=== PATIENT | female | born 1945 | race Caucasian/White ===

== ENCOUNTER 2016-05-30 04:03 | Inpatient (IN) | payer MEDICARE, OTHER ==
--- NOTE | 2016-05-30 04:21 | ED Physician Documentation ---
General Adult - HISTORIAN Historian: patient - HPI Stated Complaint: sob Chief Complaint: General Adult Onset: hours Timing: still present Severity: moderate Further Comments: yes (Pt is a 71 yo female with hx COPD, recently dx'd with bronchitis 3 days ago, and started on prednisone 40 mg. Pt has become worse. SpO2 on arrival was 83% but improved to 88% on resting. SpO2 improved to 99% on 4L NC O2 and was then reduced to 2L NC O2. Pt uses O2 at home. Pt did not have chest pain, but has had cough productive of yellow sputum. Pt has not been on abx for this episode.) - ROS CONST: other (malaise) EYES/ENT: other (throat irritation) CVS/RESP: shortness of breath, cough GI/: none MS/SKIN/LYMPH: none - PAST HX Past History: COPD, other (HLD, hypothyroidism, hx bronchitis, depression.) Surgeries/Procedures: cholecystectomy Allergies/Adverse Reactions: Allergies Allergy/AdvReac Type Severity Reaction Status Date / Time silver Allergy Intermediate Rash Verified 05/30/16 04:42 shellfish derived AdvReac Intermediate Vomiting Verified 05/30/16 04:42 - SOCIAL HX Smoking History: cigarettes - FAMILY HX Family History: No - REVIEWED ASSESSMENTS Nursing Assessment Reviewed: Yes Vitals Reviewed: Yes Progress - Progress Progress: Duoneb HFN Solu-medrol 80 mg IV Lasix 20 mg IV Azithromycin 500 mg in ER. Admit to Dr. Luna. - EKG/XRAY/CT EKG: NSR (HR=88; normal ID interval; normal axis.) XRAY: chest (No active disease.) General Adult Physical Exam - PHYSICAL EXAM GENERAL APPEARANCE: moderate distress EENT: pharynx normal, TM's nml, other (sinus fullness) NECK: normal inspection, supple RESPIRATORY: no resp distress, chest non-tender, breath sounds normal CVS: reg rate & rhythm, heart sounds normal BACK: normal inspection, no CVA tenderness SKIN: warm/dry, normal color EXTREMITIES: non-tender, normal range of motion, no edema NEURO: oriented X3, motor nml, sensation nml Discharge Clincal Impression: COPD exacerbation, Bronchitis Referrals: Belia Luna MD [Primary Care Provider] - Condition: Fair Disposition: 09 ADMITTED INPATIENT Decision to Admit: [id number] Decision Time: 06:15
[2016-05-30] MEDS ORDERED: IPRATROPIUM/ALBUTEROL SULFATE 3 ML AMPUL.NEB NEB ONE (04:22)
[2016-05-30 04:47] LABS: BASOPHILS % 0.3 (0.0-1.5); EOSINOPHILS % 1.4 % (0.0-6.8); LYMPHOCYTES # 1.8 # k/uL (0.6-4.0); MEAN CORPUSCULAR HEMOGLOBIN 31.1 pg (28.0-34.0); MONOCYTES # 0.5 # k/uL (0.0-0.9); MONOCYTES % 4.1 % (0.0-11.0); NEUTROPHILS # 8.8 # k/uL (1.4-7.7)
[2016-05-30 05:00] LABS: eGFR (African) > 60; eGFR (Non-African) > 60
[2016-05-30] MEDS ORDERED: methylPREDNISolone SOD SUCC 40 MG/ML VIAL IM ONE (05:19)
--- NOTE | 2016-05-30 05:52 | Diagnostic Imaging Report ---
[facility] [address] [facility].[address] [address] ~ ~ ~ ~ Report Submission Date: May 30, 2016 5:12:50 AM GREEN CHAIN WORKER Patient ~ Study Name: DAV PEREZ ~ Date: May 30, 2016 4:55:13 AM GREEN CHAIN WORKER ~ Modality Type: CR Gender: F ~ Description: CHEST : 41 ~ Institution: [facility] Physician: BIANCA NAVARRETE ~ ~ ~ ~ Chest - one-view Clinical history: ~Chest congestion with cough for 4-5 days. ~Shortness of breath. Findings: ~Examination of the chest in single portable AP view 05/30/2016 0455 hours with comparison to examination of 02/03/2016 demonstrates the lungs to be clear. ~Cardiac silhouette is prominent and the aorta is atherosclerotic. ~Bony thorax is intact. Impression: 1. ~No significant change. 2. ~No active disease. ~ Electronically signed on May 30, 2016 5:12:50 AM GREEN CHAIN WORKER by: Zion ESPINOZA
[2016-05-30] MEDS ORDERED: FUROSEMIDE 20 MG/2 ML VIAL IVP ONE (06:03)
[2016-05-30] MEDS ORDERED: AZITHROMYCIN 250 MG TABLET PO ONE (06:14)
[2016-05-30] MEDS: AZITHROMYCIN 500 MG in 0.9 % SODIUM CHLORIDE 250 ML IV SCH (06:18)
[2016-05-30] MEDS ORDERED: guaiFENesin/CODEINE PHOS 30ML BOTTLE PO ONE (06:54)
[2016-05-30] MEDS ORDERED: guaiFENesin/CODEINE PHOS 30ML BOTTLE PO PRN (07:18)
[2016-05-30 08:04] VITALS: BMI 29.2
--- NOTE | 2016-05-30 09:12 | History and Physical Report ---
History of Present Illnes - History of Present Illness Reason for Visit: Shortness of breath History of Present Illness: Patient who is a smoker with COPD presented to ER with worsening SOB. She was seen 05-27-16 and started on a prednisone taper. She has become progressively more dyspneic - found to have RA SAT of 84% when she came in. Improved to 88% with rest. O2 applied at 4 L and SAT improved to 95%. Has had a cough of yellow sputum. CXR and WBC normal in ER. Influenza negative. BNP mild elevated but no h/o CHF. Denies long periods of sitting, edema, CP, orthopnea. - Past Medical History Cardiac: HTN, Hyperlipidemia Pulmonary: COPD Psych: Depression Rheumatologic: Rheumatoid arthritis Endocrine: Other (Nathalie 1993) - Past Surgical History Past Surgical History: Cholecystectomy (2012) - Past Family History Father Family History: CVA, Hypertension, (69) Mother Family History: CAD, Hypertension, (75) - Past Social History Smoke: 1 pack per day Alcohol: None Drugs: None Lives: Alone - Health Maintenance Health Maintenance: Influenza Vaccine, Pneumococcal Vaccine Influenza Vaccine: Current for this Influenza Season Pneumonia Vaccine: Yes (UTD) Resuscitation Status: Resusciation Status Resuscitation Status Full Code Review of Systems - Review of Systems Constitutional: Weakness, Malaise. negative: Fever Eyes: negative: pain ENT: Throat Pain (better). negative: Ear Pain Respiratory: Cough, Shortness of Breath, Sputum, Wheezing Cardiovascular: negative: Chest Pain, Palpitations Gastrointestinal: negative: Nausea, Vomiting, Abdominal Pain, Diarrhea Genitourinary: negative: Dysuria Musculoskeletal: negative: Neck Pain Skin: negative: Rash Neurological: Weakness - Medications/Allergies Allergies/Adverse Reactions: Allergies Allergy/AdvReac Type Severity Reaction Status Date / Time silver Allergy Intermediate Rash Verified 05/30/16 04:42 shellfish derived AdvReac Intermediate Vomiting Verified 05/30/16 04:42 Current Inpatient Medications: Current Inpatient Medications Guaifenesin/Codeine Phosphate (Robitussin Ac) 5 ml PO Q4 PRN PRN Reason: Cough Azithromycin 500 mg/ Sodium (Chloride) 250 mls @ 125 mls/hr IV Q24H FATIMAH Stop: 06/09/16 06:59 Last Admin: 05/30/16 06:18 Dose: 125 mls/hr Exam - Exam Vital Signs: Vital Signs (72 hours) 05/30/16 05/30/16 07:02 07:05 Temperature 98.7 F Pulse Rate [ 89 95 H Pulse ox] Respiratory 20 20 Rate Blood Pressure 155/74 155/74 [Left Arm] O2 Sat by Pulse 95 95 Oximetry General: Alert, Oriented to Person, Oriented to Place, Oriented to Time, Cooperative, Mild distress HEENT: Atraumatic, PERRLA, EOMI, Mouth Mucous membr. moist/[place], Nose Mucous membr. moist/[place] Neck: Normal Range of Motion Lungs: Speaks full Sentences, Wheezes, Decreased Air Movement Cardiovascular: Regular rate Abdomen: Normal bowel sounds, Soft, No tenderness Integumentary: Normal Extremities: No edema Neurological: Normal gait, Normal speech, Strength Equal Bilat Psych/Mental Status: Mental status NL, Mood NL, Appropriate Affect, Intact Judgment Assessment/Plan - Assessment/Plan (1) Hypertension Status: Chronic Current Visit: No Qualifiers: Hypertension type: essential hypertension Qualified Code(s): I10 - Essential (primary) hypertension Plan: Stable. Continue outpatient medications. (2) HLD (hyperlipidemia) Status: Chronic Current Visit: No Qualifiers: Hyperlipidemia type: mixed hyperlipidemia Qualified Code(s): E78.2 - Mixed hyperlipidemia Plan: Stable. Cont. Statin. (3) Depression Status: Chronic Current Visit: No Qualifiers: Depression Type: major depressive disorder Major depression recurrence: recurrent Active/Remission status: in partial remission Qualified Code(s): F33.41 - Major depressive disorder, recurrent, in partial remission Plan: Cont. zoloft. (4) COPD exacerbation Status: Acute Current Visit: Yes Plan: Patient will be admitted for IV steroids, duonebs, and O2 to keep SAT's > 90%. Lovenox and MAEGAN for DVT prevention. Smoking cessation education to be provided. (5) Bronchitis Status: Acute Current Visit: Yes Plan: CXR clear but will treat with zithromax IV. Cheratussin AC prn. (6) Elevated CK Status: Acute Current Visit: Yes Plan: Suspect due to cough. Will monitor. Slow IV hydration. Watch since BNP was mildly elevated. Received IV lasix in ER. Plan Echo as outpatient. VTE Assessment - RISK FACTOR SCORE VTE RISK FACTOR SCORES: AGE OVER 60 YEARS, ANTICIPATED BED CONFINEMENT OR IMMOBILIZATION > 24 HOURS - RISK VTE MODERATE RISK: SCORE OF 2 (RISK PROXIMAL DVT 2-4%) PROPHYAXIS NEEDED
[2016-05-30] MEDS ORDERED: ALBUTEROL SULFATE 2.5 MG/3 ML AMPUL.NEB NEB PRN (09:27)
[2016-05-30] MEDS ORDERED: SALINE FLUSH 10 ML DISP.SYRIN IVF ONE ×2 (09:58→19:10)
[2016-05-30] MEDS ORDERED: LEVOTHYROXINE SODIUM 100 MCG TABLET PO ONE ×2 (10:07→19:11)
[2016-05-30] MEDS ORDERED: LEVOTHYROXINE SODIUM 25 MCG TABLET ONE ×2 (10:07→19:11)
[2016-05-30] MEDS: IPRATROPIUM/ALBUTEROL SULFATE 3 ML AMPUL.NEB NEB SCH ×4 (10:12→20:25)
[2016-05-30] MEDS: amLODIPine BESYLATE 5 MG TABLET PO SCH (10:12)
[2016-05-30] MEDS: SIMVASTATIN 20 MG TABLET PO SCH (10:14)
[2016-05-30] MEDS: METOPROLOL SUCCINATE 50 MG TAB.ER.24H PO SCH (10:14)
[2016-05-30] MEDS: FENOFIBRATE 160 MG TABLET PO SCH (10:14)
[2016-05-30] MEDS: SERTRALINE HCL 50 MG TABLET PO SCH (10:15)
[2016-05-30] MEDS: LEVOTHYROXINE SODIUM 100 MCG TABLET PO SCH (10:16)
[2016-05-30] MEDS: SALINE FLUSH 10 ML DISP.SYRIN IV SCH ×2 (10:16→20:26)
[2016-05-30] MEDS: methylPREDNISolone SOD SUCC 40 MG/ML VIAL IVP SCH ×2 (10:29→20:26)
[2016-05-30] MEDS: ENOXAPARIN SODIUM 40 MG/0.4 ML DISP.SYRIN SQ SCH (10:30)
[2016-05-30] MEDS: guaiFENesin/CODEINE PHOS 30ML BOTTLE PO PRN ×2 (16:46→23:20)
[2016-05-30] MEDS ORDERED: AZITHROMYCIN 500 MG VIAL IV ONE (19:11)
[2016-05-30] MEDS ORDERED: 0.9 % SODIUM CHLORIDE 250 ML IV ONE (19:11)
[2016-05-30] MEDS ORDERED: methylPREDNISolone SOD SUCC 40 MG/ML VIAL ONE (19:11)
[2016-05-31] MEDS: IPRATROPIUM/ALBUTEROL SULFATE 3 ML AMPUL.NEB NEB SCH ×6 (00:50→21:22)
[2016-05-31] MEDS ORDERED: methylPREDNISolone SOD SUCC 40 MG/ML VIAL ONE (03:31)
[2016-05-31] MEDS: guaiFENesin/CODEINE PHOS 30ML BOTTLE PO PRN (04:59)
[2016-05-31] MEDS: AZITHROMYCIN 500 MG in 0.9 % SODIUM CHLORIDE 250 ML IV SCH (06:16)
[2016-05-31] MEDS: LEVOTHYROXINE SODIUM 100 MCG TABLET PO SCH (06:17)
[2016-05-31] MEDS ORDERED: SALINE FLUSH 10 ML DISP.SYRIN IVF ONE (08:06)
[2016-05-31] MEDS: SALINE FLUSH 10 ML DISP.SYRIN IV SCH ×2 (08:16→21:43)
[2016-05-31] MEDS: SIMVASTATIN 20 MG TABLET PO SCH (08:17)
[2016-05-31] MEDS: amLODIPine BESYLATE 5 MG TABLET PO SCH (08:17)
[2016-05-31] MEDS: SERTRALINE HCL 50 MG TABLET PO SCH (08:17)
[2016-05-31] MEDS: methylPREDNISolone SOD SUCC 40 MG/ML VIAL IVP SCH ×3 (08:17→21:24)
[2016-05-31] MEDS: ENOXAPARIN SODIUM 40 MG/0.4 ML DISP.SYRIN SQ SCH (08:18)
[2016-05-31] MEDS: FENOFIBRATE 160 MG TABLET PO SCH (08:18)
[2016-05-31] MEDS: METOPROLOL SUCCINATE 50 MG TAB.ER.24H PO SCH (08:18)
--- NOTE | 2016-05-31 08:25 | Inpatient Progress Note ---
Subjective - Required Recertification Statement I anticipate X number of days because-include discharge plan: 2 - Review of Systems Subjective: Patient was very SOB when I arrived today - coughing and wheezing. Albuterol HFN given - responded very well. Reports duonebs help a lot but don't last the full 4 hours. Pulmonary: Dyspnea, Cough Objective - Exam Vitals and I&O: Vital Signs Temp 98.0 F 05/31/16 05:46 Pulse 81 05/31/16 05:47 Resp 20 05/31/16 05:46 BP 145/79 05/31/16 05:46 Pulse Ox 96 05/31/16 05:47 Intake & Output 05/30/16 05/30/16 05/31/16 11:59 23:59 11:59 Intake Total 240 Output Total 600 Balance 240 -600 Weight 77.111 kg Intake: Oral 240 Output: Urine 600 Other: Voiding Method Toilet Toilet General: Alert, Oriented to Person, Oriented to Place, Oriented to Time, Cooperative Lungs: Wheezes, Decreased Air Movement Cardiovascular: Regular rate - Results Results: Laboratory Results WBC 11.40 K/ul (4.00-12.00) 05/30/16 04:21 RBC 4.54 M/ul (3.90-5.20) 05/30/16 04:21 Hgb 14.1 g/dL (12.0-16.0) 05/30/16 04:21 Hct 43.7 % (34.5-46.5) 05/30/16 04:21 MCV 96.2 fl (80.0-100.0) 05/30/16 04:21 MCH 31.1 pg (28.0-34.0) 05/30/16 04:21 MCHC 32.3 g/dL (30.0-36.0) 05/30/16 04:21 RDW 12.9 % (11.3-14.3) 05/30/16 04:21 Plt Count 225 K/mm3 (130-400) 05/30/16 04:21 Neut % (Auto) 76.9 % (39.0-79.0) 05/30/16 04:21 Lymph % (Auto) 16.0 % (16.0-50.0) 05/30/16 04:21 [place] % (Auto) 4.1 % (0.0-11.0) 05/30/16 04:21 Eos % (Auto) 1.4 % (0.0-6.8) 05/30/16 04:21 Baso % (Auto) 0.3 (0.0-1.5) 05/30/16 04:21 Neut # 8.8 # k/uL (1.4-7.7) H 05/30/16 04:21 Lymph # 1.8 # k/uL (0.6-4.0) 05/30/16 04:21 [place]t # 0.5 # k/uL (0.0-0.9) 05/30/16 04:21 Eos # 0.2 # k/uL (0.0-0.6) 05/30/16 04:21 Baso # 0.0 # k/uL (0.0-0.5) 05/30/16 04:21 Reactive Lymphs % 1.4 % (0.0-5.0) 05/30/16 04:21 Reactive Lymphs # 0.2 # k/uL (0.0-0.8) 05/30/16 04:21 Sodium 141 mmol/L (136-145) 05/30/16 04:21 Potassium 3.5 mmol/L (3.5-5.0) 05/30/16 04:21 Chloride 109 mmol/L (98-110) 05/30/16 04:21 Carbon Dioxide 28 mmol/L (20-32) 05/30/16 04:21 BUN 13 mg/dL (10-26) 05/30/16 04:21 Creatinine 0.7 mg/dL (0.4-1.5) 05/30/16 04:21 Est GFR ( Amer) > 60 (60-) 05/30/16 04:21 Est GFR (Non-Af Amer) > 60 (60-) 05/30/16 04:21 Glucose 124 mg/dL (70-99) H 05/30/16 04:21 Calcium 9.7 mg/dL (8.5-10.5) 05/30/16 04:21 Total Bilirubin 0.8 mg/dL (0.2-1.2) 05/30/16 04:21 AST 28 U/L (0-41) 05/30/16 04:21 ALT 24 U/L (0-45) 05/30/16 04:21 Alkaline Phosphatase 50 U/L (46-116) 05/30/16 04:21 Creatine Kinase 511 U/L (0-225) H 05/31/16 06:30 Troponin I < 0.03 ng/mL (0.00-0.06) 05/31/16 06:30 NT-Pro-B Natriuret Pep 388.9 pg/mL (15.0-125.0) H 05/30/16 04:39 Total Protein 7.3 g/dL (6.0-8.5) 05/30/16 04:21 Albumin 4.8 g/dL (3.0-5.5) 05/30/16 04:21 Influenza A (Rapid) Negative (NEGATIVE) 05/30/16 06:00 Influenza B (Rapid) Negative (NEGATIVE) 05/30/16 06:00 Assessment/Plan - Assessment/Plan (1) Hypertension Status: Chronic Current Visit: No Qualifiers: Hypertension type: essential hypertension Qualified Code(s): I10 - Essential (primary) hypertension (2) HLD (hyperlipidemia) Status: Chronic Current Visit: No Qualifiers: Hyperlipidemia type: mixed hyperlipidemia Qualified Code(s): E78.2 - Mixed hyperlipidemia (3) Depression Status: Chronic Current Visit: No Qualifiers: Depression Type: major depressive disorder Major depression recurrence: recurrent Active/Remission status: in partial remission Qualified Code(s): F33.41 - Major depressive disorder, recurrent, in partial remission (4) COPD exacerbation Status: Acute Current Visit: Yes Plan: Add albuterol HFN q2hr prn SOB. Watch closely. (5) Bronchitis Status: Acute Current Visit: Yes (6) Elevated CK Status: Acute Current Visit: Yes Plan: Trending down now. Troponin negative. Suspect due to coughing.
[2016-05-31] MEDS: ALBUTEROL SULFATE 2.5 MG/3 ML AMPUL.NEB NEB SCH ×7 (10:28→23:15)
[2016-06-01] MEDS: ALBUTEROL SULFATE 2.5 MG/3 ML AMPUL.NEB NEB SCH ×6 (00:15→10:56)
[2016-06-01] MEDS: IPRATROPIUM/ALBUTEROL SULFATE 3 ML AMPUL.NEB NEB SCH ×5 (02:43→19:47)
[2016-06-01] MEDS ORDERED: 0.9 % SODIUM CHLORIDE 250 ML IV ONE (04:26)
[2016-06-01] MEDS ORDERED: AZITHROMYCIN 500 MG VIAL IV ONE (04:26)
[2016-06-01] MEDS ORDERED: LEVOTHYROXINE SODIUM 25 MCG TABLET ONE (06:10)
[2016-06-01] MEDS: methylPREDNISolone SOD SUCC 40 MG/ML VIAL IVP SCH ×3 (06:11→20:21)
[2016-06-01] MEDS: LEVOTHYROXINE SODIUM 100 MCG TABLET PO SCH (06:14)
[2016-06-01] MEDS: AZITHROMYCIN 500 MG in 0.9 % SODIUM CHLORIDE 250 ML IV SCH (06:14)
[2016-06-01] MEDS: SERTRALINE HCL 50 MG TABLET PO SCH (07:43)
[2016-06-01] MEDS: amLODIPine BESYLATE 5 MG TABLET PO SCH (07:43)
[2016-06-01] MEDS: ENOXAPARIN SODIUM 40 MG/0.4 ML DISP.SYRIN SQ SCH (07:43)
[2016-06-01] MEDS: SIMVASTATIN 20 MG TABLET PO SCH (07:43)
[2016-06-01] MEDS: METOPROLOL SUCCINATE 50 MG TAB.ER.24H PO SCH (07:43)
[2016-06-01] MEDS: SALINE FLUSH 10 ML DISP.SYRIN IV SCH (07:44)
[2016-06-01] MEDS: FENOFIBRATE 160 MG TABLET PO SCH (07:46)
--- NOTE | 2016-06-01 10:22 | Inpatient Progress Note ---
Subjective - Required Recertification Statement I anticipate X number of days because-include discharge plan: 2 - Review of Systems Subjective: Patient feeling 50% better. Still with cough and wheeze. Objective - Exam Vitals and I&O: Vital Signs Temp 99.2 F 06/01/16 09:43 Pulse 84 06/01/16 09:43 Resp 20 06/01/16 09:43 BP 127/72 06/01/16 09:43 Pulse Ox 91 L 06/01/16 09:43 Intake & Output 05/31/16 05/31/16 06/01/16 11:59 23:59 11:59 Intake Total 200 440 600 Output Total 600 500 Balance -400 -60 600 Weight 77.111 kg Intake: IV 500 Right Forearm 500 Oral 200 440 100 Output: Urine 600 500 Other: Voiding Method Toilet Toilet Toilet # Voids 4 General: Alert, Oriented to Person, Oriented to Place, Oriented to Time HEENT: Atraumatic, PERRLA, EOMI, Mouth Mucous membr. moist/[place] Lungs: Decreased Air Movement (no wheezing noted today.) - Results Results: Laboratory Results WBC 11.40 K/ul (4.00-12.00) 05/30/16 04:21 RBC 4.54 M/ul (3.90-5.20) 05/30/16 04:21 Hgb 14.1 g/dL (12.0-16.0) 05/30/16 04:21 Hct 43.7 % (34.5-46.5) 05/30/16 04:21 MCV 96.2 fl (80.0-100.0) 05/30/16 04:21 MCH 31.1 pg (28.0-34.0) 05/30/16 04:21 MCHC 32.3 g/dL (30.0-36.0) 05/30/16 04:21 RDW 12.9 % (11.3-14.3) 05/30/16 04:21 Plt Count 225 K/mm3 (130-400) 05/30/16 04:21 Neut % (Auto) 76.9 % (39.0-79.0) 05/30/16 04:21 Lymph % (Auto) 16.0 % (16.0-50.0) 05/30/16 04:21 [place] % (Auto) 4.1 % (0.0-11.0) 05/30/16 04:21 Eos % (Auto) 1.4 % (0.0-6.8) 05/30/16 04:21 Baso % (Auto) 0.3 (0.0-1.5) 05/30/16 04:21 Neut # 8.8 # k/uL (1.4-7.7) H 05/30/16 04:21 Lymph # 1.8 # k/uL (0.6-4.0) 05/30/16 04:21 [place] # 0.5 # k/uL (0.0-0.9) 05/30/16 04:21 Eos # 0.2 # k/uL (0.0-0.6) 05/30/16 04:21 Baso # 0.0 # k/uL (0.0-0.5) 05/30/16 04:21 Reactive Lymphs % 1.4 % (0.0-5.0) 05/30/16 04:21 Reactive Lymphs # 0.2 # k/uL (0.0-0.8) 05/30/16 04:21 Sodium 141 mmol/L (136-145) 05/30/16 04:21 Potassium 3.5 mmol/L (3.5-5.0) 05/30/16 04:21 Chloride 109 mmol/L (98-110) 05/30/16 04:21 Carbon Dioxide 28 mmol/L (20-32) 05/30/16 04:21 BUN 13 mg/dL (10-26) 05/30/16 04:21 Creatinine 0.7 mg/dL (0.4-1.5) 05/30/16 04:21 Est GFR ( Amer) > 60 (60-) 05/30/16 04:21 Est GFR (Non-Af Amer) > 60 (60-) 05/30/16 04:21 Glucose 124 mg/dL (70-99) H 05/30/16 04:21 Calcium 9.7 mg/dL (8.5-10.5) 05/30/16 04:21 Total Bilirubin 0.8 mg/dL (0.2-1.2) 05/30/16 04:21 AST 28 U/L (0-41) 05/30/16 04:21 ALT 24 U/L (0-45) 05/30/16 04:21 Alkaline Phosphatase 50 U/L (46-116) 05/30/16 04:21 Creatine Kinase 511 U/L (0-225) H 05/31/16 06:30 Troponin I < 0.03 ng/mL (0.00-0.06) 05/31/16 06:30 NT-Pro-B Natriuret Pep 388.9 pg/mL (15.0-125.0) H 05/30/16 04:39 Total Protein 7.3 g/dL (6.0-8.5) 05/30/16 04:21 Albumin 4.8 g/dL (3.0-5.5) 05/30/16 04:21 Influenza A (Rapid) Negative (NEGATIVE) 05/30/16 06:00 Influenza B (Rapid) Negative (NEGATIVE) 05/30/16 06:00 Assessment/Plan - Assessment/Plan (1) Hypertension Status: Chronic Current Visit: No Qualifiers: Hypertension type: essential hypertension Qualified Code(s): I10 - Essential (primary) hypertension (2) HLD (hyperlipidemia) Status: Chronic Current Visit: No Qualifiers: Hyperlipidemia type: mixed hyperlipidemia Qualified Code(s): E78.2 - Mixed hyperlipidemia (3) Depression Status: Chronic Current Visit: No Qualifiers: Depression Type: major depressive disorder Major depression recurrence: recurrent Active/Remission status: in partial remission Qualified Code(s): F33.41 - Major depressive disorder, recurrent, in partial remission (4) COPD exacerbation Status: Acute Current Visit: Yes Plan: Patient finally seems to be turning the corner. Will continue IV steroids. Wean off albuterol. (5) Bronchitis Status: Acute Current Visit: Yes (6) Elevated CK Status: Acute Current Visit: Yes
[2016-06-01] MEDS ORDERED: ALBUTEROL SULFATE 2.5 MG/3 ML AMPUL.NEB NEB PRN (10:23)
[2016-06-01] MEDS: SALINE FLUSH 10 ML DISP.SYRIN IVF SCH ×2 (10:45→20:21)
[2016-06-01 11:28] LABS: MEAN CORPUSCULAR HEMOGLOBIN 30.9 pg (28.0-34.0)
[2016-06-01 11:29] LABS: eGFR (African) > 60; eGFR (Non-African) > 60
[2016-06-01] MEDS ORDERED: MAGNESIUM HYDROXIDE 400 MG/5 ML 30ML UDC PO ONE (12:24)
[2016-06-01 12:50] LABS: MONOCYTES % 6 % (0-11); SEGMENTED NEUTROPHILS % 84 % (39-79)
[2016-06-02] MEDS: IPRATROPIUM/ALBUTEROL SULFATE 3 ML AMPUL.NEB NEB SCH ×4 (01:12→13:26)
[2016-06-02] MEDS: methylPREDNISolone SOD SUCC 40 MG/ML VIAL IVP SCH ×2 (05:47→13:21)
[2016-06-02] MEDS: AZITHROMYCIN 500 MG in 0.9 % SODIUM CHLORIDE 250 ML IV SCH (05:48)
[2016-06-02] MEDS: LEVOTHYROXINE SODIUM 100 MCG TABLET PO SCH (06:19)
[2016-06-02] MEDS: SIMVASTATIN 20 MG TABLET PO SCH (08:39)
[2016-06-02] MEDS: METOPROLOL SUCCINATE 50 MG TAB.ER.24H PO SCH (08:39)
[2016-06-02] MEDS: SERTRALINE HCL 50 MG TABLET PO SCH (08:39)
[2016-06-02] MEDS: FENOFIBRATE 160 MG TABLET PO SCH (08:39)
[2016-06-02] MEDS: amLODIPine BESYLATE 5 MG TABLET PO SCH (08:39)
[2016-06-02] MEDS: SALINE FLUSH 10 ML DISP.SYRIN IVF SCH (08:40)
[2016-06-02] MEDS: ENOXAPARIN SODIUM 40 MG/0.4 ML DISP.SYRIN SQ SCH (09:17)
--- NOTE | 2016-06-02 15:57 | Discharge Summary ---
Discharge Summary - Discharge Sumary History of Present Illness: Patient who is a smoker with COPD presented to ER with worsening SOB. She was seen 05-27-16 and started on a prednisone taper. She has become progressively more dyspneic - found to have RA SAT of 84% when she came in. Improved to 88% with rest. O2 applied at 4 L and SAT improved to 95%. Has had a cough of yellow sputum. CXR and WBC normal in ER. Influenza negative. BNP mild elevated but no h/o CHF. Denies long periods of sitting, edema, CP, orthopnea. Condition at Discharge: Stable Home Medications: Ambulatory Orders Medication Instructions Recorded Prednisone 10 mg PO DAILY #40 tablet 06/02/16 Consultations this Visit: None Procedures this Visit: None Allergies/Adverse Reactions: Allergies Allergy/AdvReac Type Severity Reaction Status Date / Time silver Allergy Intermediate Rash Verified 05/30/16 04:42 shellfish derived AdvReac Intermediate Vomiting Verified 05/30/16 04:42 Discharge Summary: Patient was admitted with bronchitis and a COPD exacerbation. CXR was negative. She was treated with IV zithromax for 3 days. Started on IV steroids and duonebs q4hr. Patient still had a lot of wheezing, coughing, and dyspnea so IV steroids were increased from 80 mg q12 to 80 mg q8. Albuterol q2hr prn was added. Patient responded in 24 hours to the increase. She was able to wean off O2 and discharge home. She will complete a prednisone taper. Smoking cessation was strongly encouraged. Hospital Course: Discharge Dx: COPD exacerbation; HLD; Depression; elevated CK ; HTN. Disposition - Home
[2016-06-02 17:00] VITALS: BP 142/83
== END 2016-06-02 16:40 | disposition home or self-care (01) | DRG 202 ==
LOC: ED 04:03 → SOUTH 06:56
PROVIDERS: ADMIT Family Medicine; ATTEND Family Medicine
DX: J20.9 Acute bronchitis, unspecified (principal); J44.1 Chronic obstructive pulmonary disease with (acute) exacerbation; F17.210 Nicotine dependence, cigarettes, uncomplicated; E03.9 Hypothyroidism, unspecified; E78.5 Hyperlipidemia, unspecified; I10 Essential (primary) hypertension; F33.41 Major depressive disorder, recurrent, in partial remission
CPT/HCPCS: 36415; 71010; 80048; 80053; 82550; 83880; 84484; 85025; 87400; 93005; 94640; 94760; J0456; J1030; J1650; J1940; J7050; 99222; 99232; 99238; 99283; 99284; J2920; S1016

== ENCOUNTER 2017-03-16 10:16 | Outpatient (CLI) | payer MEDICARE, OTHER ==
--- NOTE | 2017-03-16 13:06 | Diagnostic Imaging Report ---
KB BRAVO [facility] [address] [facility] [address] [address] Report Submission Date: Mar 16, 2017 10:50:28 AM CDT Patient Study Name: DAV PEREZ Date: Mar 16, 2017 10:26:49 AM CDT Modality Type: CR Gender: F Description: CHEST : 41 Institution: [facility] Physician: KB BRAVO Examination: PA and lateral chest. History: Evaluate lung lamb. Comparison exam: 30 May 2016 Findings: PA lateral chest demonstrate a normal cardiac and mediastinal silhouette. Vascular calcifications involving the aortic arch. No focal infiltrate. No blunting of the costophrenic margins. Osseous structures are appropriate for age. Impression: No acute pulmonary process. Electronically signed on Mar 16, 2017 10:50:28 AM CDT by: José Manuel ESPINOZA
== END 2017-03-16 10:17 ==
LOC: RAD 10:16
PROVIDERS: ATTEND Physician Assistant
DX: J44.9 Chronic obstructive pulmonary disease, unspecified (principal); R05 Cough
CPT/HCPCS: 71020

== ENCOUNTER 2017-09-05 02:05 | Emergency (ER) | payer MEDICARE, OTHER ==
[2017-09-05 02:39] LABS: EOSINOPHILS % 7.3 % (0.0-6.8); MEAN CORPUSCULAR HEMOGLOBIN 30.7 pg (28.0-34.0); MEAN CORPUSCULAR VOLUME 96.2 fl (80.0-100.0); MONOCYTES % 4.1 % (0.0-11.0); NEUTROPHILS # 2.5 # k/uL (1.4-7.7)
--- NOTE | 2017-09-05 02:45 | Diagnostic Imaging Report ---
LAUREN ALBERTO (PIPELINE SUPERINTENDENT) - ER [facility] [address] [facility].[address] [address] Report Submission Date: Sep 05, 2017 2:36:12 AM CDT Patient Study Name: DAV PEREZ Date: Sep 05, 2017 2:14:49 AM CDT Modality Type: DX Gender: F Description: CHEST : 41 Institution: [facility] Physician: LAUREN ALBERTO (PIPELINE SUPERINTENDENT) - ER Portable chest Clinical history: SOA X 1 DAY Findings: Examination of the chest in single portable AP view demonstrates the lungs to be clear. Cardiovascular and mediastinal silhouettes are within normal limits. Bony thorax is intact. Impression: 1. Negative chest. Electronically signed on Sep 05, 2017 2:36:12 AM CDT by: Zion ESPINOZA
[2017-09-05 02:52] LABS: eGFR (Non-African) > 60
[2017-09-05] MEDS ORDERED: methylPREDNISolone SOD SUCC 40 MG/ML VIAL IVP ONE (03:00)
--- NOTE | 2017-09-05 03:00 | ED Physician Documentation ---
Dyspnea - HISTORIAN Historian: patient - HPI Stated Complaint: soa Chief Complaint: Dyspnea Onset: hours Duration: continues in ED Initiating Event: denies: upper respiratory illness, out of meds, sports, exercise, environmental allergy, aspiration, choking, exposure to smoke, exposure to mold, other Severity: mild Exacerbated By: nothing Associated Symptoms: none Further Comments: yes (72 year old female patient called EMS due to SOB and wheezing. On arrival EMS reports patient was taking an albuterol neb; duoneb given in route for wheezing. On arrival, fine faint expiratory wheeze. Patient reports symptoms started last night. Reports she uses her pulmocort prn.) - ROS CONST: no problems EYES/ENT: none GI/: none NEURO/PSYCH: denies: headache MS/SKIN/LYMPH: none - PAST HX Lung Disease: COPD, other (RA, ) Cardiac Disease: none PE Risk Factors: hypertension Other History: hyperlipidemia, other (hypothyroidism, depression) Allergies/Adverse Reactions: Allergies Allergy/AdvReac Type Severity Reaction Status Date / Time shellfish derived AdvReac Intermediate Vomiting Verified 09/05/17 02:41 Sulfa (Sulfonamide AdvReac Intermediate Anaphylaxis Verified 09/05/17 02:41 Antibiotics) Home Medications: Ambulatory Orders Medication Instructions Recorded Azithromycin [Zithromax] 250 mg PO DAILY #6 tablet 09/05/17 Prednisone 5 mg PO DAILY 09/05/17 Prednisone 40 mg PO DAILY #16 tablet 09/05/17 - SOCIAL HX Smoking History: cigarettes - FAMILY HX Family History: denies: none - VITAL SIGNS Vital Signs: Vital Signs Temp Pulse Resp BP Pulse Ox 97.9 F 104 H 28 H 121/83 97 09/05/17 02:08 09/05/17 02:08 09/05/17 02:08 09/05/17 02:08 09/05/17 02:08 - REVIEWED ASSESSMENTS Nursing Assessment Reviewed: Yes Vitals Reviewed: Yes Progress - Progress Progress: Encouraged patient to use pulmocort as prescribed BID. Start daily allegry medication. BBS clear at discharge; RA Sat 96-97%. ED Results Lab/Radiology - Lab Results Lab Results: Lab Results 09/05/17 09/05/17 02:34 02:34 WBC 5.20 K/ul K/ul (4.00-12.00) RBC 4.74 M/ul M/ul (3.90-5.20) Hgb 14.5 g/dL g/dL (12.0-16.0) Hct 45.6 % % (34.5-46.5) MCV 96.2 fl fl (80.0-100.0) MCH 30.7 pg pg (28.0-34.0) MCHC 31.9 g/dL g/dL (30.0-36.0) RDW 12.2 % % (11.3-14.3) Plt Count 182 K/mm3 K/mm3 (130-400) Neut % (Auto) 48.8 % % (39.0-79.0) Lymph % (Auto) 36.3 % % (16.0-50.0) [place] % (Auto) 4.1 % % (0.0-11.0) Eos % (Auto) 7.3 % H % (0.0-6.8) Baso % (Auto) 1.0 (0.0-1.5) Neut # (Auto) 2.5 # k/uL # k/uL (1.4-7.7) Lymph # (Auto) 1.9 # k/uL # k/uL (0.6-4.0) Bell # (Auto) 0.2 # k/uL # k/uL (0.0-0.9) Eos # (Auto) 0.4 # k/uL # k/uL (0.0-0.6) Baso # (Auto) 0.0 # k/uL # k/uL (0.0-0.5) Reactive Lymphs % 2.6 % % (0.0-5.0) Reactive Lymphs # 0.1 # k/uL # k/uL (0.0-0.8) Sodium 142 mmol/L mmol/L (136-145) Potassium 3.6 mmol/L mmol/L (3.5-5.1) Chloride 107 mmol/L mmol/L (98-107) Carbon Dioxide 19 mmol/L L mmol/L (22-30) BUN 16 mg/dL mg/dL (7-17) Creatinine 0.80 mg/dL mg/dL (0.52-1.04) Estimated Creat Clear 83 Est GFR ( Amer) > 60 (60 - ) Est GFR (Non-Af Amer) > 60 (60 - ) Glucose 150 mg/dL H mg/dL (74-106) Calcium 9.2 mg/dL mg/dL (8.4-10.2) Total Bilirubin 0.9 mg/dL mg/dL (0.2-1.3) AST 31 U/L U/L (15-46) ALT 34 U/L U/L (13-69) Alkaline Phosphatase 39 U/L U/L (38-126) Total Protein 6.5 g/dL g/dL (6.3-8.2) Albumin 4.0 g/dL g/dL (3.5-5.0) - Radiology Radiology Impressions: Portable chest Clinical history: SOA X 1 DAY Findings: Examination of the chest in single portable AP view demonstrates the lungs to be clear. Cardiovascular and mediastinal silhouettes are within normal limits. Bony thorax is intact. Impression: 1. Negative chest. Electronically signed on Sep 05, 2017 2:36:12 AM CDT by: Zion Jovel - Orders Orders: ED Orders Category Date Time Status CHEST 1VIEW [RAD] Stat Exams 09/05/17 Completed CBC/PLATELET/DIFF Routine Lab 09/05/17 02:34 Completed CMP [CMP] Routine Lab 09/05/17 02:34 Completed Dyspnea Physical Exam - EXAM General Appearance: mild distress EENT: eye inspection normal, ENT inspection normal, pharynx normal, no signs of dehydration, BRUNILDA, no nystagmus, TM's nml Respiratory: no resp. distress, no pain on inspiration, speaks full sentences, wheezes (faint expiratory wheeze) CVS: reg. rate & rhythm, no murmur, no gallop, no friction rub, pulses full, pulses equal Abdomen: non-tender, no organomegaly, no distention, no ascites Skin: color nml, no rash, warm, nml palp., dry Extremities: non-tender, normal range of motion, no evidence of injury, no edema , J, SHIPS OR BARGES LOADER Neuro/Psych: oriented x3, CN's nml as tested, motor nml, sensation nml, mood/ affect nml Discharge Clincal Impression: COPD exacerbation Prescriptions: Azithromycin [Zithromax] 250 mg PO DAILY #6 tablet Prednisone 40 mg PO DAILY #16 tablet Referrals: Belia Luna MD [Primary Care Provider] - 2 Days Additional Instructions: Start a daily allergy medication - claritan, blair, zyrtec Use your pulmocort twice a day superintendent job your prescriptions and start them today. Condition: Stable Disposition: 01 HOME, SELF-CARE Decision to Admit: NO Decision Time: 03:07
[2017-09-05] MEDS ORDERED: methylPREDNISolone SOD SUCC 40 MG/ML VIAL ONE (03:01)
[2017-09-05 03:37] VITALS: BP 105/73
== END 2017-09-05 03:20 | disposition home or self-care (01) ==
LOC: ED 02:05
DX: J44.1 Chronic obstructive pulmonary disease with (acute) exacerbation (principal)
CPT/HCPCS: 71045; 80053; 85025; J1030; 96374; 99284; J2920

== ENCOUNTER 2018-01-12 10:32 | Outpatient (CLI) | payer MEDICARE, OTHER | END 2018-01-12 10:33 | LOC: LAB 10:32 | PROVIDERS: ATTEND Family Medicine | DX: E78.2 Mixed hyperlipidemia (principal); E03.9 Hypothyroidism, unspecified | CPT/HCPCS: 36415; 80061; 84443 ==